=== PATIENT | female | born 1990 | race Caucasian/White ===

== ENCOUNTER 2020-01-09 11:06 | Emergency (ER) | payer MEDICAID ==
[2020-01-09] MEDS ORDERED: BUFFERED LIDOCAINE 10 ML SYRINGE SUBQ STA (12:16)
[2020-01-09] MEDS ORDERED: TETANUS/DIPHTHERIA/PERTUSSIS 0.5 ML SYRINGE IM ONE (12:28)
--- NOTE | 2020-01-09 12:40 | ED Physician Documentation ---
PD HPI UPPER EXT INJURY - Stated complaint Stated Complaint: R HAND LAC - Chief complaint Chief Complaint: Laceration - History obtained from History obtained from: Patient - History of Present Illness Location: Right, Finger (index finger) Where injury occurred: Home Timing - onset: How many hours ago (1) Timing - duration: Hours (1) Timing - details: Abrupt onset Pain level max: 9 Pain level now: 9 Improved by: Rest Worsened by: Moving, Palpating Associated symptoms: No: Weakness, Numbness, Tingling, Swelling Contributing factors: No: Anticoagulated Recently seen: Not recently seen - Additonal information Additional information: Partial fingertip amputation s/p closed in a door. Review of Systems Ten Systems: 10 systems reviewed and negative Constitutional: denies: Fever, Chills Cardiac: denies: Chest pain / pressure Respiratory: denies: Cough GI: denies: Vomiting, Diarrhea Skin: denies: Rash PD PAST MEDICAL HISTORY - Past Medical History Past Medical History: Yes Cardiovascular: None Respiratory: Asthma Neuro: None Endocrine/Autoimmune: None GI: None PRODUCT DEVELOPMENT CONSULTANT: None : None HEENT: None Psych: None Musculoskeletal: None Derm: None - Past Surgical History Past Surgical History: Yes General: Cholecystectomy, Appendectomy /PRODUCT DEVELOPMENT CONSULTANT: Tubal ligation, Hysterectomy - Present Medications Home Medications: Ambulatory Orders Medication Instructions Recorded Confirmed Cephalexin [Keflex] 500 mg PO Q6H #28 capsule 01/09/20 Oxycodone HCl/Acetaminophen 1 - 2 each PO Q6H PRN #14 tablet 01/09/20 [Percocet 5-325 mg Tablet] - Allergies Allergies/Adverse Reactions: Allergies Allergy/AdvReac Type Severity Reaction Status Date / Time acetaminophen [From Vicodin] Allergy Nausea Verified 01/09/20 11:17 hydrocodone [From Vicodin] Allergy Nausea Verified 01/09/20 11:17 iodine Allergy Rash Verified 01/09/20 11:17 - Social History Does the pt smoke?: Yes Smoking Status: Current every day smoker Does the pt drink ETOH?: No Does the pt have substance abuse?: No - Immunizations Immunizations are current?: No Immunizations: TDAP >10years/unknown PD ED PE NORMAL - Vitals Vital signs reviewed: Yes - General General: Alert and oriented X 3, No acute distress - HEENT HEENT: Moist mucous membranes - Neck Neck: Supple, no meningeal sign - Cardiac Cardiac: RRR - Respiratory Respiratory: No respiratory distress, Clear bilaterally - Derm Derm: Warm and dry - Extremities Extremities: Other (R index finger, dorsal nail avulsed and skin down to bone. NVI) - Neuro Neuro: Alert and oriented X 3 - Psych Psych: Normal mood, Normal affect Results - Vitals Vitals: Vital Signs - 24 hr 01/09/20 01/09/20 01/09/20 11:17 11:21 14:00 Temperature 36.9 C 98.7 C H 36.5 C Heart Rate 81 69 68 Respiratory 18 16 18 Rate Blood Pressure 117/79 116/83 H 124/74 O2 Saturation 99 97 98 Oxygen O2 Source Room air Procedures - Laceration (location) R index finger Length in cm: 2 Wound type: Irregular, Other (amputation) Neurovascular status: Sensory intact, Motor intact, Vascular intact Tendon involvement: Tendon intact Anesthesia: Lidocaine 1% Wound Preparation: Irrigated copiously NS, Wound explored, To the base Skin layer closure: Nylon, Interrupted, Size #-0 - enter number (4) Other: Patient tolerated well, No complications, Neurovascular intact Complexity: Complex PD MEDICAL DECISION MAKING - ED course Complexity details: reviewed results, re-evaluated patient, considered differential, d/w patient ED course: 29-year-old female with a right index finger partial amputation. The bone was exposed approximately 5 mm. I discussed the case with Dr. Michelle, orthopedics on-call, who does not feel that he needs to evaluate this patient in person. He states that if she would like to wait until his clinic is over in 4 hours she can, but otherwise he does not feel that she needs orthopedic/hand care urgently. I discussed with the patient options including transfer to a different facility for orthopedics, hand specialty or waiting for Dr. Michelle. She states that she is fine having the procedure done in the emergency department by a non orthopedist. She states that she is not concerned about the cosmesis of the outcome. We will have her follow-up closely with orthopedics. The laceration was repaired. Approximately 5 mm of bone was rongeured, the flap was closed over the exposed bone. Xeroform placed over the wound. Kerlix bandaged. The remainder of the nail was removed. Tdap given. Pain well controlled. Patient was informed of potential complications including infection, need for revision, osteomyelitis, potential loss of digit. Patient counseled regarding signs and symptoms for which I believe and urgent re-evaluation would be necessary. Patient with good understanding of and agreement to plan and is comfortable going home at this time This document was made in part using voice recognition software. While efforts are made to proofread this document, sound alike and grammatical errors may occur. Departure - Departure Disposition: 01 Home, Self Care Clinical Impression: Fingertip amputation Qualifiers: Encounter type: initial encounter Qualified Code(s): S68.119A - Complete traumatic metacarpophalangeal amputation of unspecified finger, initial encounter Condition: Good Instructions: ED Laceration Amputation Finger Tip Open Tx Follow-Up: Jeffy Michelle MD [Provider Admit Priv/Credential] - Within 3 Days Prescriptions: Cephalexin [Keflex] 500 mg PO Q6H #28 capsule Oxycodone HCl/Acetaminophen [Percocet 5-325 mg Tablet] 1 - 2 each PO Q6H PRN #14 tablet PRN Reason: pain Comments: Take all antibiotics until gone. You need to see orthopedics within 3 days. I spoke to Dr. Michelle today. Return if you notice redness, swelling or drainage from the wound. You can change the outer dressing if it becomes bloody or dirty. Do not drink alcohol or drive while on narcotic pain medicine. Note that many narcotic pain relievers also contain tylenol/acetaminophen. Please ensure that your total dose of acetaminophen from all sources does not exceed 3 grams (3000mg) per day. You may constipated on this medication, take a stool softener such as "Colace" twice a day while you are on it. Also recommend a xpae-nfu-ilafbec laxative such as senna or MiraLAX any day that you do not have a bowel movement. If you received narcotic pain medication in the emergency department, do not drive or operate machinery for the next 24 hours. Discharge Date/Time: 01/09/20 14:04
[2020-01-09] MEDS ORDERED: cephALEXin 250 MG CAPSULE PO STA (13:41)
[2020-01-09] MEDS ORDERED: oxyCODONE 5 MG TABLET PO STA (13:45)
[2020-01-09 14:01] VITALS: BP 124/74
== END 2020-01-09 14:04 | disposition home or self-care (01) ==
LOC: ED 11:06
DX: S68.119A Complete traumatic metacarpophalangeal amputation of unspecified finger, initial encounter (principal); W23.1XXA Caught, crushed, jammed, or pinched between stationary objects, initial encounter; Y92.009 Unspecified place in unspecified non-institutional (private) residence as the place of occurrence of the external cause; F17.200 Nicotine dependence, unspecified, uncomplicated
CPT/HCPCS: 13131; 90471; 90715; 99283; 99284; A9270

== ENCOUNTER 2020-01-22 14:51 | Emergency (ER) | payer MEDICAID ==
--- NOTE | 2020-01-22 15:03 | ED Physician Documentation ---
PD HPI WOUND RECHECK - Stated complaint Stated Complaint: FINGER PAIN, STITCH REMOVAL - Chief complaint Chief Complaint: Laceration - Histroy obtained from History obtained from: Patient - History of Present Illness Location: Right Hand (index finger tip) Timing - onset: How many weeks ago (2) Associated symptoms: Swelling. No: Redness, Drainage Recently seen: Emergency Dept (had finger tip injury with presumed tuft fracture and avulsion of the skin. Had bone rongoured and skin oversewn. Has not been doing any soaking nor ointent. Here for suture removal. States has crusted scab, so serous drainage at times, and is very tender.) Review of Systems Constitutional: denies: Fever Nose: denies: Rhinorrhea / runny nose, Congestion Respiratory: denies: Cough GI: denies: Nausea, Vomiting Neurologic: denies: Focal weakness, Numbness PD PAST MEDICAL HISTORY - Past Medical History Cardiovascular: None Respiratory: Asthma Neuro: None Endocrine/Autoimmune: None GI: None RUSTIC FENCE BUILDER: None : None HEENT: None Psych: None Musculoskeletal: None Derm: None - Past Surgical History Past Surgical History: Yes General: Cholecystectomy, Appendectomy /RUSTIC FENCE BUILDER: Tubal ligation, Hysterectomy - Present Medications Home Medications: Ambulatory Orders Medication Instructions Recorded Confirmed Cephalexin [Keflex] 500 mg PO Q6H #28 capsule 01/09/20 Oxycodone HCl/Acetaminophen 1 - 2 each PO Q6H PRN #14 tablet 01/09/20 [Percocet 5-325 mg Tablet] Doxycycline Monohydrate 100 mg PO BID #14 tablet 01/22/20 Mupirocin 1 applic TP TID #15 g 01/22/20 Naproxen 375 mg PO TID #30 tablet 01/22/20 Oxycodone HCl/Acetaminophen 1 each PO Q6H PRN #14 tablet 01/22/20 [Percocet 5-325 mg Tablet] - Allergies Allergies/Adverse Reactions: Allergies Allergy/AdvReac Type Severity Reaction Status Date / Time acetaminophen [From Vicodin] Allergy Nausea Verified 01/22/20 14:55 hydrocodone [From Vicodin] Allergy Nausea Verified 01/22/20 14:55 iodine Allergy Rash Verified 01/22/20 14:55 - Social History Does the pt smoke?: Yes Smoking Status: Current every day smoker Does the pt drink ETOH?: No Does the pt have substance abuse?: No - Immunizations Immunizations are current?: No Immunizations: TDAP >10years/unknown PD ED PE NORMAL - Vitals Vital signs reviewed: Yes - General General: Alert and oriented X 3, No acute distress, Well developed/nourished - Derm Derm: Normal color, Warm and dry - Extremities Extremities: Other (right index finger tip with scabbed wound with buried sutures in scab. No purulence. Able to flex/ext at DIP. Normal color of skin. ) - Neuro Neuro: No motor deficit, No sensory deficit Results - Vitals Vitals: Vital Signs - 24 hr 01/22/20 01/22/20 14:55 16:37 Temperature 36.5 C Heart Rate 80 79 Respiratory 16 16 Rate Blood Pressure 123/85 H 125/77 O2 Saturation 97 99 Oxygen O2 Source Room air - Rads (name of study) finger xray Radiology: Prelim report reviewed (distal tuft fracture. No articular involvement.), See rad report PD MEDICAL DECISION MAKING - ED course Complexity details: reviewed results, considered differential (needed cleaning and removal of dried blood, and pt requested numbing first, so did digitial block. ), d/w patient Departure - Departure Disposition: 01 Home, Self Care Clinical Impression: Encounter for wound re-check, Visit for suture removal Condition: Stable Record reviewed to determine appropriate education?: Yes Follow-Up: Jeffy Michelle MD [Provider Admit Priv/Credential] - [facility] [Provider Group] Prescriptions: Doxycycline Monohydrate 100 mg PO BID #14 tablet Mupirocin 1 applic TP TID #15 g Naproxen 375 mg PO TID #30 tablet Oxycodone HCl/Acetaminophen [Percocet 5-325 mg Tablet] 1 each PO Q6H PRN #14 tablet PRN Reason: pain Comments: Cleanse the fingertip twice daily with just gentle soap and water and apply mupirocin antibiotic ointment lightly to it afterward. Keep it dressed and clean. Naproxen anti-inflammatory twice daily for the next 7 to 10 days with food. To that add Tylenol or Percocet if needed for pain. It looks pretty good at this point considering the condition. Use doxycycline antibiotic to keep infection away. Try to follow-up with orthopedics or your primary care clinic towards the end of this week, call for an appointment. The orthopedic offices supposed to provide at least one follow-up visit after an ER encounter. Discharge Date/Time: 01/22/20 16:38
[2020-01-22] MEDS ORDERED: LIDOCAINE 2% 50 ML MDV SUBQ STA (15:12)
[2020-01-22] MEDS ORDERED: NAPROXEN 250 MG TABLET PO STA (15:15)
[2020-01-22] MEDS ORDERED: DOXYCYCLINE 100 MG TABLET PO STA (15:15)
[2020-01-22] MEDS ORDERED: LIDOCAINE-MPF 2% 5 ML VIAL SUBQ STA (15:17)
--- NOTE | 2020-01-22 16:05 | XRAY Report ---
PROCEDURE: Finger(s) RT INDICATIONS: follow up finger injury 2 wks ago TECHNIQUE: AP hand, 2 views of the second finger(s) acquired. COMPARISON: None available FINDINGS: Bones: A highly comminuted fracture is seen involving the distal aspect of the distal phalanx of the second finger. No intra-articular involvement is seen. No additional fractures can be seen. No suspicious lytic or blastic lesions are seen. Soft tissues: Soft tissue injury is seen involving the distal aspect of the second finger, with appar ent partial amputation change. IMPRESSION: Highly comminuted fracture of the distal aspect of the distal phalanx of the second finger, with appa rent partial amputation change. Reviewed by: Koko Chew MD on 01/22/2020 3:04 PM CANDY Approved by: Koko Chew MD on 01/22/2020 3:04 PM CANDY Station ID: [id number]
[2020-01-22] MEDS ORDERED: MUPIROCIN 2% OINT 1 GM TOP STA (16:20)
[2020-01-22 16:38] VITALS: BP 125/77
== END 2020-01-22 16:38 | disposition home or self-care (01) ==
LOC: ED 14:51
DX: S69.91XD Unspecified injury of right wrist, hand and finger(s), subsequent encounter (principal); X58.XXXD Exposure to other specified factors, subsequent encounter
CPT/HCPCS: 73140; 99283; A9270

== ENCOUNTER 2020-06-06 16:07 | Outpatient (CLI) | payer MEDICAID ==
[2020-06-06 16:43] LABS: BASOPHILS # (AUTO) 0.1 10^3/uL (0.0-0.1); BASOPHILS % (AUTO) 0.8 %; EOSINOPHILS # (AUTO) 0.2 10^3/uL (0.0-0.7); EOSINOPHILS % (AUTO) 2.4 %; HCT - HEMATOCRIT 43.3 % (37.0-47.0); HGB - HEMOGLOBIN 14.3 g/dL (12.0-16.0); LYMPHOCYTES % (AUTO) 24.2 %; MEAN CORPUSCULAR HEMOGLOBIN 28.9 pg (27.0-31.0); MEAN CORPUSCULAR VOLUME 87.7 fL (81.0-99.0); MEAN PLATELET VOLUME 9.3 fL (7.9-10.8); MONOCYTES # (AUTO) 0.7 10^3/uL (0.0-1.0); MONOCYTES % (AUTO) 8.1 %; NEUTROPHILS # (AUTO) 5.3 10^3/uL (1.5-6.6); NEUTROPHILS % (AUTO) 64.1 %; PLT - PLATELET COUNT 261 10^3/uL (130-450); RED BLOOD COUNT 4.94 10^6/uL (4.20-5.40); WHITE BLOOD COUNT 8.3 x10^3/uL (4.8-10.8)
[2020-06-06 17:03] LABS: ALBUMIN 4.5 g/dL (3.2-5.5); ALBUMIN/GLOBULIN RATIO 1.6 (1.0-2.2); ALKALINE PHOSPHATASE 47 IU/L (42-121); ALT ALANINE AMINOTRANSFERASE 24 IU/L (10-60); AST ASPARTATE AMINOTRANSFERASE 19 IU/L (10-42); BILIRUBIN,TOTAL 0.8 mg/dL (0.2-1.0); BUN - BLOOD UREA NITROGEN 15 mg/dL (6-20); CALCIUM 9.4 mg/dL (8.5-10.3); CARBON DIOXIDE - CO2 27 mmol/L (21-32); CHLORIDE 101 mmol/L (101-111); CHOL/HDL RATIO 3.1 (<4.4); CHOLESTEROL 152 mg/dL; CREATININE 0.8 mg/dL (0.4-1.0); GFR - MDRD 83 (>89); GLUCOSE 85 mg/dL (70-100); HDL CHOLESTEROL 49 mg/dL; POTASSIUM 3.9 mmol/L (3.5-5.0); SODIUM 135 mmol/L (135-145); TOTAL PROTEIN 7.3 g/dL (6.7-8.2); TRIGLYCERIDES 33 mg/dL
[2020-06-06 17:04] LABS: CRP - C-REACTIVE PROTEIN < 1.0 mg/dL (0-1.0)
[2020-06-06 17:11] LABS: THYROID STIMULATING HORMONE 0.64 uIU/mL (0.34-5.60)
[2020-06-06 20:32] LABS: ESTIMATED AVERAGE GLUCOSE 108 mg/dL (70-100); HEMOGLOBIN A1c% 5.4 % (4.27-6.07)
[2020-06-07 14:01] LABS: HEPATITIS C ANTIBODY NON-REACTIVE (NON-REACTIVE)
== END 2020-06-06 16:08 | disposition home or self-care (01) ==
LOC: LAB 16:07
PROVIDERS: ATTEND Nurse Practitioner Family
DX: R63.4 Abnormal weight loss (principal)
CPT/HCPCS: 36415; 80053; 80061; 83036; 83721; 84443; 85025; 85651; 86140; 86803

== ENCOUNTER 2022-12-08 11:27 | Emergency (ER) | payer MEDICAID ==
[2022-12-08 11:56] LABS: BASOPHILS # (AUTO) 0.1 10^3/uL (0.0-0.1); BASOPHILS % (AUTO) 0.8 %; EOSINOPHILS # (AUTO) 0.1 10^3/uL (0.0-0.7); EOSINOPHILS % (AUTO) 2.3 %; HCT - HEMATOCRIT 42.9 % (37.0-47.0); HGB - HEMOGLOBIN 14.1 g/dL (12.0-16.0); LYMPHOCYTES # (AUTO) 1.6 10^3/uL (1.5-3.5); LYMPHOCYTES % (AUTO) 26.5 %; MEAN CORPUSCULAR HEMOGLOBIN 28.2 pg (27.0-31.0); MEAN CORPUSCULAR HGB CONC 32.9 g/dL (32.0-36.0); MEAN CORPUSCULAR VOLUME 85.8 fL (81.0-99.0); MEAN PLATELET VOLUME 9.3 fL (7.9-10.8); MONOCYTES # (AUTO) 0.5 10^3/uL (0.0-1.0); MONOCYTES % (AUTO) 8.2 %; NEUTROPHILS # (AUTO) 3.9 10^3/uL (1.5-6.6); PLT - PLATELET COUNT 223 10^3/uL (130-450); RED CELL DISTRIBUTION WIDTH 12.5 % (12.0-15.0); WHITE BLOOD COUNT 6.2 x10^3/uL (4.8-10.8)
--- NOTE | 2022-12-08 12:02 | XRAY Report ---
PROCEDURE: Chest 1 View X-Ray INDICATIONS: Chest pain TECHNIQUE: One view of the chest was acquired. COMPARISON: None. FINDINGS: Surgical changes and devices: None. Lungs and pleura: No pleural effusions or pneumothorax. Lungs are clear. Mediastinum: Mediastinal contours appear normal. Heart size is normal. Bones and chest wall: No suspicious bony lesions. Overlying soft tissues appear unremarkable. IMPRESSION: No acute cardiopulmonary process. Negative for pneumothorax. Reviewed by: Koko Chew MD on 12/08/2022 11:01 AM CANDY Approved by: Koko Chew MD on 12/08/2022 11:01 AM CANDY Station ID: [id number]
[2022-12-08 12:10] LABS: ALBUMIN 4.8 g/dL (3.2-5.5); ALKALINE PHOSPHATASE 49 IU/L (42-121); ALT ALANINE AMINOTRANSFERASE 12 IU/L (10-60); AST ASPARTATE AMINOTRANSFERASE 14 IU/L (10-42); BILIRUBIN,TOTAL 0.5 mg/dL (0.2-1.0); BUN - BLOOD UREA NITROGEN 14 mg/dL (6-20); CALCIUM 9.8 mg/dL (8.5-10.3); CARBON DIOXIDE - CO2 30 mmol/L (21-32); CHLORIDE 103 mmol/L (101-111); CREATININE 0.9 mg/dL (0.6-1.3); GFR - MDRD 72 (>89); GLUCOSE 94 mg/dL (74-104); LIPASE 28 U/L (11-82); POTASSIUM 3.7 mmol/L (3.5-4.5); SODIUM 138 mmol/L (135-145); TOTAL PROTEIN 7.2 g/dL (6.4-8.9)
--- OUTSIDE RECORDS SUMMARY | 2022-12-08 12:15 | EXTERNAL MEDICAL SUMMARY RPT | Continuity of Care Document ---
Author Name Unknown Address [address] [place] [address] Phone Organization [place] Address [address] [place] [address] Phone Care Team Providers Care Suction Roller Name Role Phone Claudine Napoles Unavailable Unavailable Problems date description facility 2022-12-01 12:51 Unspecified lump in the left breast, unspecified quadrant [facility] 2022-12-01 12:51 Encounter for screen ing mammogram for malignant neoplasm of [facility] 2022-12-01 13:10 Unspecified lump in the left breast, unspecified quadrant [facility] 2022-12-01 13:10 Encounter for screen ing mammogram for malignant neoplasm of [facility] Results/Labs test date facility value unit notes Social History date description facility 2022-11-20 00:00 Smokes tobacco daily (finding) [facility] Vital Signs date measurement value units 2022-11-20 00:00 BMI 22.3 kg/m2 2022-11-20 00:00 BP_diastolic 62 mmHg 2022-11-20 00:00 BP_systolic 110 mmHg 2022-11-20 00:00 heart_rate 65 /min 2022-11-20 00:00 height_metric 175.26 cm 2022-11-20 00:00 height_standard 69 in 2022-11-20 00:00 o2_saturation 98 % 2022-11-20 00:00 weight_metric 68.6 kg 2022-11-20 00:00 weight_standard 151.24 lb
[2022-12-08 12:18] LABS: TROPONIN I HIGH SENSITIVITY < 2.3 ng/L (2.3-14.8)
[2022-12-08] MEDS ORDERED: SODIUM CHLORIDE 0.9% 1,000 ML IV STA (12:23)
--- NOTE | 2022-12-08 12:34 | ED Physician Documentation ---
History of Present Illness - Stated complaint Stated Complaint: CHEST/ARM/NECK PX, LOW BP - Chief complaint Chief Complaint: Cardiac - History obtained from History obtained from: Patient - History of Present Illness Pain level max: 4 Pain level now: 3 - Additonal information Additional information: Patient is a 32-year-old female who states that her blood pressure was low at home this weekend, 90/60. She has felt fatigued and tired for the past few days. No fever. No cough. No congestion. 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 She states the symptoms have now resolved. She states that it was sharp, nothing made it worse. No change with movement, breathing, exertion. Has not had similar symptoms previously. No medication changes. No recent travel. No leg swelling. No recent immobilization. No history of DVT. Has had a hysterectomy. Review of Systems Constitutional: denies: Fever, Chills Nose: denies: Rhinorrhea / runny nose, Congestion Throat: denies: Dental pain / toothache, Sore throat Cardiac: denies: Palpitations Respiratory: denies: Dyspnea, Cough, Wheezing GI: denies: Nausea, Vomiting, Diarrhea Skin: denies: Rash Musculoskeletal: denies: Neck pain, Back pain Neurologic: denies: Headache PD PAST MEDICAL HISTORY - Past Medical History Cardiovascular: None Respiratory: Asthma Neuro: None Endocrine/Autoimmune: None GI: None CLOUD SECURITY ARCHITECT: None : None HEENT: None Psych: None Musculoskeletal: None Derm: None - Past Surgical History Past Surgical History: Yes General: Cholecystectomy, Appendectomy /CLOUD SECURITY ARCHITECT: Tubal ligation, Hysterectomy - Present Medications Home Medications: Ambulatory Orders Medication Instructions Recorded Confirmed No Known Home Medications 12/08/22 12/08/22 - Allergies Allergies/Adverse Reactions: Allergies Allergy/AdvReac Type Severity Reaction Status Date / Time acetaminophen [From Vicodin] Allergy Nausea Verified 12/08/22 11:34 hydrocodone [From Vicodin] Allergy Nausea Verified 12/08/22 11:34 iodine Allergy Rash Verified 12/08/22 11:34 - Social History Does the pt smoke?: Yes Smoking Status: Current every day smoker Does the pt drink ETOH?: No Does the pt have substance abuse?: No - Immunizations Immunizations are current?: No Immunizations: TDAP >10years/unknown PD ED PE NORMAL - Vitals Vital signs reviewed: Yes - General General: Alert and oriented X 3, No acute distress - HEENT HEENT: PERRL, Other (Dry lips) - Neck Neck: Supple, no meningeal sign - Cardiac Cardiac: RRR, No murmur, Strong equal pulses - Respiratory Respiratory: No respiratory distress, Clear bilaterally - Abdomen Abdomen: Soft, Non tender, Non distended - Derm Derm: Warm and dry - Extremities Extremities: No edema, No calf tenderness / cord - Neuro Neuro: Alert and oriented X 3 - Psych Psych: Normal mood, Normal affect Results - Vitals Vitals: Vital Signs - 24 hr 12/08/22 12/08/22 12/08/22 11:34 11:53 12:00 Temperature 36.8 C Heart Rate 62 53 L Respiratory 16 20 19 Rate Blood Pressure 131/80 H 108/69 O2 Saturation 100 100 12/08/22 12/08/22 12/08/22 14:00 15:16 17:04 Temperature Heart Rate 51 L 62 Respiratory 12 16 16 Rate Blood Pressure 119/80 120/84 H O2 Saturation 100 98 98 12/08/22 12/08/22 18:08 19:15 Temperature Heart Rate 54 L 53 L Respiratory 18 16 Rate Blood Pressure 118/68 110/66 O2 Saturation 98 97 Oxygen O2 Source Room air - EKG (time done) 1139 EKG releavant findings:: EKG personally interpreted by author of this note. Relevant findings are: Rate: Rate (enter#) (54) Rhythm: NSR [place]: Normal Intervals: Normal [place] QRS: Normal Ischemia: Normal ST segments - Labs Labs: Laboratory Tests 12/08/22 12/08/22 12/08/22 11:51 11:51 11:51 WBC 6.2 RBC 5.00 Hgb 14.1 Hct 42.9 MCV 85.8 MCH 28.2 MCHC 32.9 RDW 12.5 Plt Count 223 MPV 9.3 Neut # (Auto) 3.9 Lymph # (Auto) 1.6 [place] # (Auto) 0.5 Eos # (Auto) 0.1 Baso # (Auto) 0.1 Absolute Nucleated RBC 0.00 Nucleated RBC % 0.0 Sodium 138 Potassium 3.7 Chloride 103 Carbon Dioxide 30 Anion Gap 5.0 L BUN 14 Creatinine 0.9 Estimated GFR (MDRD) 72 L Glucose 94 Calcium 9.8 Phosphorus 2.9 Magnesium 1.7 Total Bilirubin 0.5 AST 14 ALT 12 Alkaline Phosphatase 49 Troponin I High Sens < 2.3 L Total Protein 7.2 Albumin 4.8 Globulin 2.4 Albumin/Globulin Ratio 2.0 Lipase 28 TSH Free T4 Direct 12/08/22 11:51 WBC RBC Hgb Hct MCV MCH MCHC RDW Plt Count MPV Neut # (Auto) Lymph # (Auto) [place] # (Auto) Eos # (Auto) Baso # (Auto) Absolute Nucleated RBC Nucleated RBC % Sodium Potassium Chloride Carbon Dioxide Anion Gap BUN Creatinine Estimated GFR (MDRD) Glucose Calcium Phosphorus Magnesium Total Bilirubin AST ALT Alkaline Phosphatase Troponin I High Sens Total Protein Albumin Globulin Albumin/Globulin Ratio Lipase TSH 0.99 Free T4 Direct 1.04 - Rads (name of study) cxr Relevant Findings:: Final report received, See rad report (No acute abnormality) PD Medical Decision Making - ED course Complexity details: reviewed results, re-evaluated patient, considered differential, d/w patient, d/w recruiting operations consultant ED course: Patient developed bradycardia in the emergency department, heart rates down to the upper 30s. It was noted that her P waves would become absent during these episodes. She states that she felt tired and fatigued when this happened. We will discuss with cardiology. I spoke with Dr. Landaverde, cardiology at [facility]. She recommends transfer for consideration of pacemaker. [facility] does not have any beds tonight, she was placed on the wait list for beds. I discussed the case with Dr. Wilson, cardiology at [facility] in [place] who states that she still has P waves but they are "very small". He does not feel that she needs admission. I then spoke with the curriculum and instruction specialist at this [facility], he states that the patient likely does not need an emergent pacemaker but recommends a Holter monitor and close outpatient follow-up with cardiology. There is no close outpatient cardiology follow-up available from this facility, therefore we will continue to try to transfer the patient. Pacer pads were placed on the patient. She remained asymptomatic. Departure - Departure Disposition: 02 Transfer Acute Care Hosp Clinical Impression: Sinus arrest, Bradycardia Condition: Stable Forms: PCP List
[2022-12-08] MEDS ORDERED: KETOROLAC 15 MG/ML VIAL IVP STA (12:35)
[2022-12-08 13:37] LABS: MAGNESIUM 1.7 mg/dL (1.7-2.3); PHOSPHORUS 2.9 mg/dL (2.5-5.0)
[2022-12-08 14:20] LABS: THYROID STIMULATING HORMONE 0.99 uIU/mL (0.34-5.60)
--- NOTE | 2022-12-09 06:45 | ED Physician Documentation ---
ED Addendum - Addendum Addendum: 12/09/22 06:44 Patient received a signout from outgoing physician, please see their do cumentation for further detail. Patient monitored carefully and continued on telemetry throughout the evening. Continues to have brief episodes of bradycardia with heart rate in the mid to low 30s. No associated symptomatology. Patient rested comfortably throughout the shift. Continue to await bed availability at [facility] with hope for transfer this afternoon. We will be signing out to the oncoming physician, please see their documentation for further detail.
--- NOTE | 2022-12-09 12:07 | ED Physician Documentation ---
ED Addendum - Addendum Addendum: 12/09/22 12:07 The patient has not had any problems overnight into this morning. [facility] was contacted again and did not expect any beds available this morning. Possibly this afternoon but unclear. We are contacting the [place] clearing house for other beds that may be available. There had not been others yesterday. The patient did have some episodes of lost P waves with junctional rhythm down to the 30s overnight. She has not had any of those episodes this morning. No lightheaded episodes or chest pain nor dyspnea. The patient and her significant other asked to speak with me. At this point the are feeling they would want to be discharged from our department and follow-up on their own. I discussed with them the potential concern for having a persistent junctional rhythm with low blood pressure and fainting episodes. Potential for heart block as well. They are aware of this risk. They would still like to be discharged from our ER. [facility] would be appropriate transfer. They are aware that this would be the optimal condition. Disposition: The patient will be signed out AGAINST MEDICAL ADVICE Diagnoses: 1. Lightheaded episodes 2. Intermittent junctional rhythm with bradycardia
[2022-12-09 12:08] VITALS: BP 102/74; O2SAT 99
== END 2022-12-09 12:40 | disposition left against medical advice (07) ==
LOC: ED 11:27
DX: I45.5 Other specified heart block (principal); R00.1 Bradycardia, unspecified; F17.200 Nicotine dependence, unspecified, uncomplicated; R42 Dizziness and giddiness; Z53.29 Procedure and treatment not carried out because of patient's decision for other reasons
CPT/HCPCS: 36415; 80053; 83690; 83735; 84100; 84439; 84443; 84484; 85025; 92953; 93005; 99284